=== PATIENT | female | born 1940 | race Caucasian/White ===

== ENCOUNTER 2023-12-01 15:21 | Emergency (ER) | payer MEDICARE, OTHER, SELFPAY ==
--- NOTE | ~2023-12-01 | US_ITS ---
EXAMINATION: US VENOUS ULTRASOUND WITH DOPPLER LOWER EXTREMITY, RIGHT CLINICAL INFORMATION: Pain COMPARISON: None available. TECHNIQUE: Ultrasound of the deep veins is performed from the hip to the calf with compression sonography and color and pulse Doppler assessment. Spectral analysis with color-flow imaging is performed. FINDINGS: There is normal venous compression and respiratory variation. The visualized common femoral vein, superficial femoral vein, profunda femoral vein, popliteal vein, and the posterior tibial and peroneal veins show no evidence of deep venous thrombosis. The contralateral common femoral vein demonstrates normal respiratory variation. US/US venous duplex LE RT IMPRESSION: No DVT demonstrated in the right lower extremity.
--- NOTE | 2023-12-01 15:59 | ED_ITS ---
HPI - General Adult General Chief complaint: Extremity Problem Stated complaint: hx blood clots, numbness around right knee/ hip Time Seen by Provider: 12/01/23 16:34 Source: patient Mode of arrival: ambulatory Limitations: no limitations History of Present Illness HPI narrative: 83 yo female presents for evaluation of right-sided hamstring tightness and numbness that began earlier this week. Patient has a PMH significant for blood clots and right knee replacement in 2019. She is chronically on coumadin. She states she called PCP and was instructed to come to ED to rule out DVT. She endorses paresthesias of right leg that have occurred intermittently since her surgery in 2019. She denies warmth, erythema, or edema of extremity. She denies any precipitating injury. She denies chest pain or SOB. MD complaint: Right hamstring tightness Onset (ago): day(s) Location: right and lower extremity Associated symptoms: denies other symptoms Related Data Allergies Allergy/AdvReac Type Severity Reaction Status Date / Time Sulfa (Sulfonamide Allergy Unknown Verified 12/01/23 16:03 Antibiotics) Review of Systems Review of Systems: Yes all other systems are reviewed and are negative [facility] Social History Social History Advance Directives: Yes Advance Directives Information Provided: No Advance Directives on File: No Do you have a plan to hurt others: No Plan Physical Exam ED Vital Signs: Vital Signs - 24 hr 12/01/23 16:00 Temperature 98.4 F Pulse Rate 76 Respiratory Rate 16 Blood Pressure 152/68 H Pulse Oximetry 98 Oxygen Delivery Method Room Air BMI result Body Mass Index 24.2 Appearance: Alert. Oriented X3. No acute distress. Head: normocephalic, atraumatic. Eyes: Pupils equal, round and reactive to light. ENT: Pharynx normal. Neck: Normal inspection. Neck supple. CVS: Normal heart rate and rhythm. Pulses normal. Respiratory: No respiratory distress. Breath sounds normal. Abdomen: Soft and nontender. Skin: Skin warm and dry. Normal skin color. Normal skin turgor. No rashes. Extremities: No lower extremity edema. No joint swelling. No warmth, erythema, or edema of right lower extremity. Neuro/psych: Oriented X 3. No motor deficit. No sensory deficit. CN II-XII intact. Normal speech and cognition. Course Course Course Narrative: RME performed by Martha Dolan PA-C. Patient is an 83 year old assigned female at presenting to the emergency department with right upper leg pain. 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 Patient's INR was checked today and is 2.1. 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 Detailed physical exam and review of systems are deferred to the musical instruments assembler. Imaging ordered. Patient placed back in the waiting room pending room availability and results. Medical Decision Making Medical Decision Making MDM Narrative: 83 yo female presents for evaluation of right-sided hamstring tightness and numbness that began earlier this week. On exam patient is awake, A+Ox3, hypertensive, afebrile, normal neurological exam without focal deficits, physical exam findings as above. Given reported symptoms and physical exam findings, initial differential includes deep vein thrombosis, muscle strain, soft tissue injury, and arthritis. Venous duplex U/S revealed no DVT in the right lower extremity. My interpretation is in agreement with the radiologist's interpretation. Low suspicion for/unlikely for DVT given exam and venous duplex U/S. Instructed patient to follow up with PCP for ongoing symptoms. Return precautions discussed at bedside. Patient verbalized understanding of and agreement with plan. Differential Diagnosis Differential Diagnoses: The differential diagnosis associated with the presentation includes Deep vein thrombosis, muscle strain, soft tissue injury, arthritis Admission/Observation Consideration of admission/observation: Escalation of care including admission/observation considered Patient would have been admitted to the hospital had their work up had any findings where hospital admission was appropriate and their clinical pres entation warranted hospital admission. Independent Interpretation I performed an independent interpretation of an: Ultrasound Interpretation: No DVT of right lower extremity. Radiology Impression Discussion of test interpretation with radiology: I have reviewed the radiologist's reading. Radiologist Impression: EXAMINATION: US VENOUS ULTRASOUND WITH DOPPLER LOWER EXTREMITY, RIGHT CLINICAL INFORMATION: Pain COMPARISON: None available. TECHNIQUE: Ultrasound of the deep veins is performed from the hip to the calf with compression sonography and color and pulse Doppler assessment. Spectral analysis with color-flow imaging is performed. FINDINGS: There is normal venous compression and respiratory variation. The visualized common femoral vein, superficial femoral vein, profunda femoral vein, popliteal vein, and the posterior tibial and peroneal veins show no evidence of deep venous thrombosis. The contralateral common femoral vein demonstrates normal respiratory variation. US/US venous duplex LE RT IMPRESSION: No DVT demonstrated in the right lower extremity. External Record Review External record reviewed: Inpatient record, Office record and Outpatient record Discharge Plan Discharge Clinical Impression: Right hamstring muscle strain Patient Disposition: Home, Self-Care Instructions: Muscle Strain (ED), Hamstring Exercises (ED) Additional Instructions: Your venous duplex ultrasound showed no DVT of right lower extremity. Monitor for warmth, redness, and swelling. If pain persists, return to ED for repeat ultrasound. Return to the emergency department or call 911 if you develop chest pain, shortness of breath or any other concerning symptoms. Please follow-up with your primary care provider. Print Language: Nepali
[2023-12-01 16:00] VITALS: BP 152/68; PULSE 76; RESP 16; TEMP 36.9; O2SAT 98; BMI 24.2
[2023-12-01 18:13] VITALS: BP 158/65; PULSE 64; RESP 18; TEMP 36.4; O2SAT 100
== END 2023-12-01 18:14 | disposition home or self-care (01) ==
PROVIDERS: Emergency Provider Emergency Medicine; PCP Internal Medicine
DX: S76.311A Strain of muscle, fascia and tendon of the posterior muscle group at thigh level, right thigh, initial encounter (principal); D68.51 Activated protein C resistance; Z86.718 Personal history of other venous thrombosis and embolism; Z96.651 Presence of right artificial knee joint; Z79.01 Long term (current) use of anticoagulants; X58.XXXA Exposure to other specified factors, initial encounter; Y93.9 Activity, unspecified; Y92.9 Unspecified place or not applicable; Y99.9 Unspecified external cause status
CPT/HCPCS: 93971; 99282; 99283